=== PATIENT | male | born 1975 | race Caucasian/White ===

== ENCOUNTER 2018-04-12 20:05 | Observation (INO) ==
--- NOTE | 2018-04-12 20:10 | ED ---
HPI General Chief Complaint: Chest Pain Stated Complaint: Chest Pain Time Seen by Provider: 04/12/18 20:06 Source: patient Mode of arrival: EMS Limitations: no limitations History of Present Illness HPI narrative: Patient states that he is from [place], stated date while he was walking at a stroll pace he started to develop sharp chest pain. Chest pain described as sharp, nonradiating, 3 out of 10, worse with movement and touching the area. MD complaint: Reports chest pain STEMI Alert: No Duration: intermittent Onset: during exertion Pain location: Reports right chest Severity: mild Severity scale (1-10): 3 Quality: Reports sharp Pain radiation: Reports none Relieving factors: nothing Exacerbating factors: palpation and movement Associated symptoms: Denies nausea, vomiting, diaphoresis, dyspnea, sense of impending doom, syncope, palpitations, cough and leg swelling Treatments prior to arrival chest pain: Reports aspirin and nitroglycerin Related Data Home Medications Medication Instructions Recorded Confirmed albuterol sulfate [ProAir HFA] 2 puff INHALATION Q6H PRN 04/12/18 04/12/18 albuterol sulfate [Ventolin HFA] 2 puff INHALATION Q4-6H PRN 04/12/18 04/12/18 alprazolam [Xanax] 1 mg PO BID PRN 04/12/18 04/12/18 amlodipine [Norvasc] 10 mg PO DAILY 04/12/18 04/12/18 beclomethasone dipropionate [Qvar 2 puff INHALATION Q12H 04/12/18 04/12/18 RediHaler] benzonatate 100 mg PO TID PRN 04/12/18 04/12/18 hydrochlorothiazide 25 mg PO DAILY 04/12/18 04/12/18 ketorolac 10 mg PO Q4-6H PRN 04/12/18 04/12/18 lisinopril 40 mg PO DAILY 04/12/18 04/12/18 ondansetron HCl [Zofran] 4 mg PO Q6-8H PRN 04/12/18 04/12/18 Allergies Allergy/AdvReac Type Severity Reaction Status Date / Time No Known Allergies Allergy Verified 04/12/18 20:27 Review of Systems ROS: all other systems reviewed are negative PMFSH History History Provided By: Patient Medical History Medical History Asthma (Acute) Hypertension (Acute) Kidney stone (Acute) Surgical History Surgical History H/O rotator cuff surgery (Acute) Family History Family History Other Family history of acute myocardial infarction Social History Social History Substance History: No History of Abuse Smoking Status: Heavy tobacco smoker Tobacco Type: Cigarettes How Often Do You Have a Drink Containing Alcohol: Never Exam Narrative Exam Narrative: GENERAL: male in no apparent distress. SKIN: Warm and dry. HEAD: Atraumatic. Normocephalic. EYES: Pupils equal and round. No scleral icterus. No injection or drainage. ENT: No nasal bleeding or discharge. Mucous membranes pink and moist. NECK: Trachea midline. No JVD. CARDIOVASCULAR: Regular rate and rhythm. no rubs or gallops RESPIRATORY: No accessory muscle use. Clear to auscultation. Breath sounds equal bilaterally. GASTROINTESTINAL: Abdomen soft, non-tender, nondistended. No rebound or guarding MUSCULOSKELETAL: Extremities without clubbing, cyanosis, or edema. No obvious deformities. Noted reproducible tenderness on palpation of chest NEUROLOGICAL: Awake and alert. No obvious cranial nerve deficits. Motor grossly within normal limits. Five out of 5 muscle strength in the arms and legs. Normal speech. PSYCHIATRIC: Appropriate mood and affect; insight and judgment normal. Course Initial Documented Vital Signs Pulse Oximetry 98 04/12/18 20:28 Last Documented Vital Signs Temperature 97.9 F 04/12/18 20:31 Pulse Rate 86 04/12/18 20:32 Respiratory Rate 18 04/12/18 20:31 Blood Pressure 119/75 04/12/18 20:31 Pulse Oximetry 99 04/12/18 20:31 Medical Decision Making [facility] Narrative Medical decision making narrative: No leukocytosis no anemia normal platelet count no left shift D-dimer mildly elevated at 0.99 however the patient has renal insufficiency and cannot have CT chest rule out PE Normal liver and pancreatic enzymes Negative first set of cardiac enzymes Total CPK 817 BUN of 30 creatinine of 2.6 Negative alcohol Negative tox screen Chest x-ray read by radiologist as no acute cardiopulmonary disease Medical Screen Exam Complete: Yes Emergency Medical Condition: Yes Medical Records Medical records reviewed: Yes I reviewed the patient's medical records. Lab Data Result diagrams: 04/12/18 20:08 04/12/18 20:08 Lab Results 04/12/18 04/12/18 04/12/18 Range/Units 20:08 20:08 20:08 CBC w Diff Auto diff final WBC 9.1 (4.0-11.0) th/mm3 RBC 4.34 L (4.50-5.90) mil/mm3 Hgb 13.2 (13.0-17.0) gm/dL Hct 38.8 L (39.0-51.0) % MCV 89.4 (80.0-100.0) fL MCH 30.4 (27.0-34.0) pg MCHC 34.0 (32.0-36.0) % RDW 13.1 (11.6-17.2) % Plt Count 235 (150-450) th/mm3 MPV 8.7 (7.0-11.0) fL Neut % (Auto) 79.8 H (16.0-70.0) % Lymph % (Auto) 14.4 (9.0-44.0) % Door % (Auto) 4.5 (0.0-8.0) % Eos % (Auto) 0.8 (0.0-4.0) % Baso % (Auto) 0.5 (0.0-2.0) % Neut # (Auto) 7.3 (1.8-7.7) th/mm3 Lymph # (Auto) 1.3 (1.0-4.8) th/mm3 Door # (Auto) 0.4 (0.0-0.9) th/mm3 Eos # (Auto) 0.1 (0.0-0.4) th/mm3 Baso # (Auto) 0.0 (0.0-0.2) th/mm3 WBC Differential . Differential Comment . D-Dimer Quant (PE/DVT) 0.99 H (0.00-0.50) mg/L FEU Sodium 139 (136-145) meq/L Potassium 4.2 (3.5-5.1) meq/L Chloride 103 (98-107) meq/L Carbon Dioxide 25.5 (21.0-32.0) meq/L Anion Gap 11 (5-15) meq/L BUN 30 H (7-18) mg/dL Creatinine 2.60 H (0.60-1.30) mg/dL Estimated GFR 27 L (>89) mL/min Random Glucose 76 (74-106) mg/dL Calcium 8.4 L (8.5-10.1) mg/dL Total Bilirubin 0.6 (0.2-1.0) mg/dL AST 57 H (15-37) U/L ALT 71 (12-78) U/L Alkaline Phosphatase 65 (45-117) U/L Total Creatine Kinase 817 H (39-308) U/L Troponin I Less than 0.02 L (0.02-0.05) ng/mL B-Natriuretic Peptide (0-100) pg/mL Total Protein 7.1 (6.4-8.2) g/dL Albumin 3.5 (3.4-5.0) g/dL Lipase 265 (73-393) U/L Urine Opiates Screen (Neg) Ur Barbiturates Screen (Neg) Ur Amphetamines Screen (Neg) U Benzodiazepines Scrn (Neg) Urine Cocaine Screen (Neg) U Cannabinoids Screen (Neg) Serum Alcohol Less than 3 (0-5) mg/dL 04/12/18 04/12/18 Range/Units 20:08 20:23 CBC w Diff WBC (4.0-11.0) th/mm3 RBC (4.50-5.90) mil/mm3 Hgb (13.0-17.0) gm/dL Hct (39.0-51.0) % MCV (80.0-100.0) fL MCH (27.0-34.0) pg MCHC (32.0-36.0) % RDW (11.6-17.2) % Plt Count (150-450) th/mm3 MPV (7.0-11.0) fL Neut % (Auto) (16.0-70.0) % Lymph % (Auto) (9.0-44.0) % Door % (Auto) (0.0-8.0) % Eos % (Auto) (0.0-4.0) % Baso % (Auto) (0.0-2.0) % Neut # (Auto) (1.8-7.7) th/mm3 Lymph # (Auto) (1.0-4.8) th/mm3 Door # (Auto) (0.0-0.9) th/mm3 Eos # (Auto) (0.0-0.4) th/mm3 Baso # (Auto) (0.0-0.2) th/mm3 WBC Differential Differential Comment D-Dimer Quant (PE/DVT) (0.00-0.50) mg/L FEU Sodium (136-145) meq/L Potassium (3.5-5.1) meq/L Chloride (98-107) meq/L Carbon Dioxide (21.0-32.0) meq/L Anion Gap (5-15) meq/L BUN (7-18) mg/dL Creatinine (0.60-1.30) mg/dL Estimated GFR (>89) mL/min Random Glucose (74-106) mg/dL Calcium (8.5-10.1) mg/dL Total Bilirubin (0.2-1.0) mg/dL AST (15-37) U/L ALT (12-78) U/L Alkaline Phosphatase (45-117) U/L Total Creatine Kinase (39-308) U/L Troponin I (0.02-0.05) ng/mL B-Natriuretic Peptide 7 (0-100) pg/mL Total Protein (6.4-8.2) g/dL Albumin (3.4-5.0) g/dL Lipase (73-393) U/L Urine Opiates Screen Neg (Neg) Ur Barbiturates Screen Neg (Neg) Ur Amphetamines Screen Neg (Neg) U Benzodiazepines Scrn Neg (Neg) Urine Cocaine Screen Neg (Neg) U Cannabinoids Screen Neg (Neg) Serum Alcohol (0-5) mg/dL Imaging Data Radiologist's impression: Chest X-Ray 04/12/18 20:06 CONCLUSION: No acute cardiopulmonary disease. ECG Data EKG Prior to Arrival: No Attestation: I personally reviewed and interpreted this ECG as follows: Prior ECG tracings: not available for review Interpretation: Normal sinus rhythm, 69 bpm, normal intervals, slight LVH pattern, no evidence of any acute ST elevation MN pattern Discharge Plan Discharge Disposition Patient Disposition: 01 Discharge Home Discharge Condition Condition: Stable Discharge Details Diagnosis: Chest wall pain Physicians Team ED Provider: Saurav Sevilla Primary Care Provider: UNKNOWN, Rxs /Orders / Referrals /Forms Prescriptions: No Action alprazolam [Xanax] 1 mg Tablet 1 mg PO BID PRN (Reason: Anxiety) RF: 0 ondansetron HCl [Zofran] 4 mg Tablet 4 mg PO Q6-8H PRN (Reason: Nausea) RF: 0 ketorolac 10 mg Tablet 10 mg PO Q4-6H PRN (Reason: Pain) RF: 0 amlodipine [Norvasc] 10 mg Tablet 10 mg PO DAILY RF: 0 benzonatate 100 mg Capsule 100 mg PO TID PRN (Reason: Cough) RF: 0 hydrochlorothiazide 25 mg Tablet 25 mg PO DAILY RF: 0 albuterol sulfate [Ventolin HFA] 90 mcg/actuation Hfa Aerosol Inhaler 2 puff INHALATION Q4-6H PRN (Reason: Shortness Of Breath) RF: 0 albuterol sulfate [ProAir HFA] 90 mcg/actuation Hfa Aerosol Inhaler 2 puff INHALATION Q6H PRN (Reason: Shortness Of Breath) RF: 0 lisinopril 40 mg Tablet 40 mg PO DAILY RF: 0 beclomethasone dipropionate [Qvar RediHaler] 80 mcg/actuation Hfa Aerosol Breath Activated 2 puff INHALATION Q12H RF: 0 Discharge Instructions Patient Printed Instructions: Chest Wall Pain (ED) Status ED Status: With Doctor
[2018-04-12 20:31] LABS: Baso % (Auto) 0.5 % (0.0-2.0); Eos # (Auto) 0.1 th/mm3 (0.0-0.4); Eos % (Auto) 0.8 % (0.0-4.0); Hematocrit 38.8 % (39.0-51.0); Hemoglobin 13.2 gm/dL (13.0-17.0); Lymph # (Auto) 1.3 th/mm3 (1.0-4.8); Lymph % (Auto) 14.4 % (9.0-44.0); Mean Corpuscular Hemoglobin 30.4 pg (27.0-34.0); Mean Corpuscular Volume 89.4 fL (80.0-100.0); Mean Platelet Volume 8.7 fL (7.0-11.0); Mono # (Auto) 0.4 th/mm3 (0.0-0.9); Mono % (Auto) 4.5 % (0.0-8.0); Neut # (Auto) 7.3 th/mm3 (1.8-7.7); Neut % (Auto) 79.8 % (16.0-70.0); Platelet Count 235 th/mm3 (150-450); Red Blood Count 4.34 mil/mm3 (4.50-5.90); Red Cell Distribution Width 13.1 % (11.6-17.2); White Blood Count 9.1 th/mm3 (4.0-11.0)
[2018-04-12 20:36] LABS: Cannabinoid Screen,Urine Neg (Neg)
[2018-04-12 20:37] LABS: Cocaine Screen,Urine Neg (Neg)
--- NOTE | 2018-04-12 20:37 | XR ---
EXAM DATE: 04/12/2018 8:32 PM EST AGE/SEX: 42 years / Male INDICATIONS: Chest pain. CLINICAL DATA: This is the patient's initial encounter. Patient reports that signs and symptoms have been present for 2 days and indicates a pain score of 7/10. MEDICAL/SURGICAL HISTORY: Asthma. Hypertension. . Left shoulder . COMPARISON: No prior exams available for comparison. FINDINGS: The lungs are clear without infiltrate, nodule, or mass. There is no appreciable pleural effusion fo r technique. Heart and mediastinum are unremarkable. CONCLUSION: No acute cardiopulmonary disease. Electronically signed by: Hui Whalen MD Board Certified Radiologist 04/12/2018 8:35 PM EST
[2018-04-12 20:38] LABS: Chloride 103 meq/L (98-107); Potassium 4.2 meq/L (3.5-5.1); Sodium 139 meq/L (136-145)
[2018-04-12 20:42] LABS: Albumin 3.5 g/dL (3.4-5.0); Anion Gap 11 meq/L (5-15); Blood Urea Nitrogen 30 mg/dL (7-18); Calcium 8.4 mg/dL (8.5-10.1); Carbon Dioxide 25.5 meq/L (21.0-32.0); Glucose,Random 76 mg/dL (74-106); Lipase 265 U/L (73-393)
[2018-04-12 20:45] LABS: Alanine Aminotransferase 71 U/L (12-78); Aspartate Aminotransferase 57 U/L (15-37); Glomerular Filtration Rate 27 mL/min (>89)
[2018-04-12 20:46] LABS: Amphetamine Screen,Urine Neg (Neg); Barbiturate Screen,Urine Neg (Neg)
[2018-04-12 20:47] LABS: Total Protein 7.1 g/dL (6.4-8.2)
[2018-04-12 20:48] LABS: Alkaline Phosphatase 65 U/L (45-117); Creatine Kinase 817 U/L (39-308)
[2018-04-12 21:00] LABS: Opiate Screen,Urine Neg (Neg)
[2018-04-12] MEDS ORDERED: Sod Chloride 0.9% Inj 1,000 ML IV.SIG ONE (21:04)
[2018-04-12 21:13] LABS: CKMB Percent 0.9 % (0.0-4.0); Creatine Kinase MB 7.4 ng/mL (0.5-3.6)
[2018-04-12] MEDS ORDERED: Acetaminophen 325 MG Tablet PO PRN (21:27)
[2018-04-12] MEDS ORDERED: Bisacodyl 10 MG Supp RECTAL PRN (21:27)
[2018-04-12] MEDS: Sod Chloride 0.9% Inj 1,000 ML IV.CONT SCH (22:27)
[2018-04-12] MEDS: Morphine Inj 4 MG/ML Vial IV.PUSH PRN (22:34)
[2018-04-13 00:07] LABS: Bilirubin,Urine Negative (Negative); Clarity,Urine Clear (Clear); Color,Urine Yellow (Yellw/Straw); Glucose,Urine (UA) Negative (Negative); Leukocyte Esterase,Urine Trace (Negative); Nitrite,Urine Negative (Negative); PH,Urine 5.5 (5.0-8.5); Urobilinogen,Urine 0.2 mg/dL (Less than 2)
[2018-04-13 00:30] LABS: RBC,Urine 0-3 /hpf (0-3); Squamous Epithelial Cell,Urine 0-5 /hpf (0-5)
[2018-04-13 07:18] LABS: Baso # (Auto) 0.1 th/mm3 (0.0-0.2); Baso % (Auto) 1.4 % (0.0-2.0); Eos # (Auto) 0.2 th/mm3 (0.0-0.4); Eos % (Auto) 2.5 % (0.0-4.0); Hematocrit 35.5 % (39.0-51.0); Hemoglobin 11.9 gm/dL (13.0-17.0); Lymph # (Auto) 2.3 th/mm3 (1.0-4.8); Lymph % (Auto) 33.1 % (9.0-44.0); Mean Corpuscular HGB Conc 33.6 % (32.0-36.0); Mean Corpuscular Hemoglobin 30.4 pg (27.0-34.0); Mean Corpuscular Volume 90.5 fL (80.0-100.0); Mean Platelet Volume 9.2 fL (7.0-11.0); Mono # (Auto) 0.5 th/mm3 (0.0-0.9); Mono % (Auto) 6.7 % (0.0-8.0); Neut # (Auto) 3.8 th/mm3 (1.8-7.7); Neut % (Auto) 56.3 % (16.0-70.0); Platelet Count 202 th/mm3 (150-450); Red Blood Count 3.92 mil/mm3 (4.50-5.90); Red Cell Distribution Width 13.4 % (11.6-17.2); White Blood Count 6.9 th/mm3 (4.0-11.0)
[2018-04-13 07:28] LABS: Chloride 108 meq/L (98-107); Potassium 4.2 meq/L (3.5-5.1); Sodium 141 meq/L (136-145)
[2018-04-13 07:33] LABS: Calcium 7.9 mg/dL (8.5-10.1)
[2018-04-13] MEDS: Senna/Docusate Sodium 8.6/50 MG Tablet PO SCH ×2 (08:01→21:17)
[2018-04-13] MEDS: Sod Chloride 0.9% Inj 1,000 ML IV.CONT SCH ×2 (08:02→17:39)
[2018-04-13 08:38] LABS: Alanine Aminotransferase 53 U/L (12-78); Albumin 2.8 g/dL (3.4-5.0); Alkaline Phosphatase 52 U/L (45-117); Anion Gap 8 meq/L (5-15); Aspartate Aminotransferase 40 U/L (15-37); Blood Urea Nitrogen 32 mg/dL (7-18); Carbon Dioxide 25.4 meq/L (21.0-32.0); Creatine Kinase 518 U/L (39-308); Glomerular Filtration Rate 34 mL/min (>89); Glucose,Random 80 mg/dL (74-106); Total Protein 5.7 g/dL (6.4-8.2)
[2018-04-13 09:58] LABS: CKMB Percent 0.8 % (0.0-4.0); Creatine Kinase MB 4.3 ng/mL (0.5-3.6)
--- NOTE | 2018-04-13 10:12 | P.HP ---
History of Present Illness Primary Care Physician: No Primary Care Physician Chief Complaint: Chest pain, generalized muscle ache History of Present Illness: This is a 42-year-old male patient with a known medical history of asthma and hypertension who presented to the ED with complaints of chest pain. Patient states he was on a walk yesterday when he developed a midsternal chest pain, he states that the pain is sharp in nature, radiated up his neck, states it was a 7 out of 10 at its worst on pain scale, lasted a couple minutes and then went away. Alleviating factors. He denies ever having this type of pain before. He denies any trauma or pulling a muscle. He does admit to low appetite lately as well as being dehydrated and overall feeling more out. He denies any recent illness including fever, chills, headache, vomiting, nausea, vomiting, diarrhea or dysuria. He is from [place], recently moved down here with a friend, states that he has been under a lot of stress and has been kicked out, and is essentially homeless at this time. He does not follow with a doctor. He does have a history of asthma which is controlled with his inhalers. His blood pressure is controlled with his medications. He does smoke tobacco daily. Denies any alcohol or drugs. Denies ever having a cardiac stress test in the past. Denies any history of kidney disease. On exam today patient is lying in bed with improvement in his chest pain. He states that overall he feels fatigued as well as generally weak with aches. He was found to have an elevated CPK and acute kidney injury. - Diagnosis (1) Acute renal failure due to rhabdomyolysis (2) Chest pain, rule out acute myocardial infarction Review of Systems All other systems reviewed negative except as [facility] - History History Provided By: Patient - Medical History Medical History: Medical History (Last Reviewed 04/13/18 @ 10:00 by Anya Woodson) Asthma Hypertension Kidney stone - Surgical History Surgical History: Surgical History (Last Reviewed 04/13/18 @ 10:00 by Anya Woodson) H/O rotator cuff surgery - Family History Family History: Family History (Last Reviewed 04/13/18 @ 10:00 by Anya Woodson) Other Family history of acute myocardial infarction - Social History I have reviewed the patient's Social History: Yes - Tobacco History Second Hand Smoke Exposure: Yes Tobacco Use In Past 30 Days: No Smoking Status: Current every day smoker Tobacco Type: Cigarettes - Alcohol History How Often Do You Have a Drink Containing Alcohol: Never - Substance Use History Substance History: No History of Abuse - Immunization History Tetanus Immunization: Unsure Medications and Allergies Active Medications: Active Medications Acetaminophen (Tylenol) 650 mg PO Q4H PRN PRN Reason: Temp > 100.4 Al Hydroxide/Mg Hydroxide (Milk Of Magnesia Liq) 30 ml PO Q12H PRN PRN Reason: Mild Constipation Aspirin (Ecotrin) 81 mg PO DAILY [facility] Last Admin: 04/13/18 08:01 Dose: 81 mg Bisacodyl (Dulcolax Supp) 10 mg RECTAL DAILY PRN PRN Reason: SEVERE CONSITIPATION Sodium Chloride (Ns Inj) 1,000 mls @ 100 mls/hr IV.CONT .Q10H [facility] Last Admin: 04/13/18 08:02 Dose: 100 mls/hr Lactulose (Lactulose Liq) 30 ml PO DAILY PRN PRN Reason: SEVERE CONSITIPATION Morphine Sulfate (Morphine Inj) 2 mg IV.PUSH Q4H PRN PRN Reason: PAIN 6-10 Last Admin: 04/12/18 22:34 Dose: 2 mg Nitroglycerin (Nitro-Bid 2% Oint) 0.5 inch TOPICAL Q6HR PRN PRN Reason: CHEST PAIN Last Admin: 04/13/18 08:05 Dose: 0.5 inch Ondansetron HCl (Zofran Inj) 4 mg IV.PUSH Q6H PRN PRN Reason: NAUSEA OR VOMITING Last Admin: 04/12/18 22:34 Dose: 4 mg Pravastatin Sodium (Pravachol) 40 mg PO DAILY [facility] Last Admin: 04/13/18 08:01 Dose: 40 mg Senna/Docusate Sodium (Clary-Colace) 1 tab PO BID [facility] Last Admin: 04/13/18 08:01 Dose: 1 tab Sennosides (Senokot) 17.2 mg PO Q12H PRN PRN Reason: Moderate Constipation Sodium Chloride (Ns Flush) 2 ml IV.FLUSH BID [facility] Last Admin: 04/13/18 08:02 Dose: Not Given Sodium Chloride (Ns Flush) 2 ml IV.FLUSH PRN PRN PRN Reason: FLUSH AFTER USING IV ACCESS Allergies Allergy/AdvReac Type Severity Reaction Status Date / Time No Known Allergies Allergy Verified 04/12/18 20:27 Home Medications Medication Instructions Recorded Confirmed Type albuterol sulfate [ProAir HFA] 2 puff INHALATION Q6H PRN 04/12/18 04/12/18 History albuterol sulfate [Ventolin HFA] 2 puff INHALATION Q4-6H PRN 04/12/18 04/12/18 History alprazolam [Xanax] 1 mg PO BID PRN 04/12/18 04/12/18 History amlodipine [Norvasc] 10 mg PO DAILY 04/12/18 04/12/18 History beclomethasone dipropionate [Qvar 2 puff INHALATION Q12H 04/12/18 04/12/18 History RediHaler] benzonatate 100 mg PO TID PRN 04/12/18 04/12/18 History hydrochlorothiazide 25 mg PO DAILY 04/12/18 04/12/18 History ketorolac 10 mg PO Q4-6H PRN 04/12/18 04/12/18 History lisinopril 40 mg PO DAILY 04/12/18 04/12/18 History ondansetron HCl [Zofran] 4 mg PO Q6-8H PRN 04/12/18 04/12/18 History Exam Vital signs: Vital Signs 04/12/18 20:28 04/12/18 20:29 04/12/18 20:31 Temperature 97.9 F 97.9 F Pulse Rate 86 86 Respiratory Rate 18 18 Blood Pressure 119/75 119/75 Pulse Oximetry 98 99 99 04/12/18 20:32 04/12/18 21:27 04/12/18 21:30 Temperature Pulse Rate 86 82 86 Respiratory Rate 18 Blood Pressure 129/76 Pulse Oximetry 100 04/13/18 00:00 04/13/18 04:00 04/13/18 06:23 Temperature 97.5 F L 96.8 F L Pulse Rate 81 83 Respiratory Rate 20 20 Blood Pressure 96/55 L 109/59 L 111/73 Pulse Oximetry 97 98 04/13/18 08:00 04/13/18 09:41 Temperature Pulse Rate Respiratory Rate Blood Pressure Pulse Oximetry 98 99 Intake & Output 04/12/18 04/13/18 04/13/18 18:59 06:59 18:59 Intake Total 1000 / 1000 1000 / 1000 Output Total 1100 / 1100 Balance -100 / -100 1000 / 1000 Weight 68.5 kg Intake: IV 1000 / 1000 1000 / 1000 NS Inj 1,000 ML @ 100 mls/hr IV 1000 / 1000 .CONT .Q10H [facility] Rx#:[id number] NS Inj 1,000 ML @ Wide Open IV. 1000 / 1000 SIG BOLUS ONE Rx#:[id number] Oral 0 / 0 Output: Urine 1100 / 1100 Other: Date of Last Bowel Movement 04/11/18 Weight On Admission 68.5 kg Narrative: GENERAL: Well-developed, well-nourished patient in [facility]. SKIN: Warm and dry. No rash. HEAD: Normocephalic. Atraumatic. EYES: Pupils equal and round. No scleral icterus. No injection or drainage. ENT: No nasal bleeding or discharge. Mucous membranes pink and moist. NECK: Supple. Trachea midline. CARDIOVASCULAR: Regular rate and rhythm. S1, S2 noted. No murmur appreciated. Mild cp to palpation of midsternal chest. RESPIRATORY: No accessory muscle use. Clear to auscultation. Breath sounds equal bilaterally. GASTROINTESTINAL: Abdomen soft, non-tender, nondistended. Normoactive bowel sounds x4. MUSCULOSKELETAL: No obvious deformities. Extremities without clubbing, cyanosis , or edema. NEUROLOGICAL: Awake and alert. No obvious cranial nerve deficits. Motor grossly within normal limits. 5/5 muscle strength in bilateral upper and lower extremities. Normal speech. PSYCHIATRIC: Appropriate mood and affect; insight and judgment normal. Results - Labs CBC & Chem 7: 04/13/18 06:40 04/13/18 06:40 Labs: Laboratory Results - last 24 hr 04/12/18 04/12/18 04/12/18 20:08 20:08 20:08 CBC w Diff Auto diff final WBC 9.1 RBC 4.34 L Hgb 13.2 Hct 38.8 L MCV 89.4 MCH 30.4 MCHC 34.0 RDW 13.1 Plt Count 235 MPV 8.7 Neut % (Auto) 79.8 H Lymph % (Auto) 14.4 [place] % (Auto) 4.5 Eos % (Auto) 0.8 Baso % (Auto) 0.5 Neut # (Auto) 7.3 Lymph # (Auto) 1.3 [place] # (Auto) 0.4 Eos # (Auto) 0.1 Baso # (Auto) 0.0 WBC Differential . Differential Comment . D-Dimer Quant (PE/DVT) 0.99 H Sodium 139 Potassium 4.2 Chloride 103 Carbon Dioxide 25.5 Anion Gap 11 BUN 30 H Creatinine 2.60 H Estimated GFR 27 L Random Glucose 76 Calcium 8.4 L Total Bilirubin 0.6 AST 57 H ALT 71 Alkaline Phosphatase 65 Total Creatine Kinase 817 H CK-MB (CK-2) 7.4 H CK-MB (CK-2) % 0.9 Troponin I Less than 0.02 L B-Natriuretic Peptide Total Protein 7.1 Albumin 3.5 Lipase 265 Urine Color Urine Clarity Urine pH Ur Specific [place] Urine Protein Urine Glucose (UA) Urine Ketones Urine Occult Blood Urine Nitrate Urine Bilirubin Urine Urobilinogen Ur Leukocyte Esterase Urine RBC Urine WBC Ur Squamous Epith Cells Micro UA Comment Ur Microscopic Review Urine Culture Comments Urine Opiates Screen Ur Barbiturates Screen Ur Amphetamines Screen U Benzodiazepines Scrn Urine Cocaine Screen U Cannabinoids Screen Serum Alcohol Less than 3 04/12/18 04/12/18 04/13/18 20:08 20:23 00:01 CBC w Diff WBC RBC Hgb Hct MCV MCH MCHC RDW Plt Count MPV Neut % (Auto) Lymph % (Auto) [place] % (Auto) Eos % (Auto) Baso % (Auto) Neut # (Auto) Lymph # (Auto) [place] # (Auto) Eos # (Auto) Baso # (Auto) WBC Differential Differential Comment D-Dimer Quant (PE/DVT) Sodium Potassium Chloride Carbon Dioxide Anion Gap BUN Creatinine Estimated GFR Random Glucose Calcium Total Bilirubin AST ALT Alkaline Phosphatase Total Creatine Kinase CK-MB (CK-2) CK-MB (CK-2) % Troponin I Less than 0.02 L B-Natriuretic Peptide 7 Total Protein Albumin Lipase Urine Color Urine Clarity Urine pH Ur Specific [place] Urine Protein Urine Glucose (UA) Urine Ketones Urine Occult Blood Urine Nitrate Urine Bilirubin Urine Urobilinogen Ur Leukocyte Esterase Urine RBC Urine WBC Ur Squamous Epith Cells Micro UA Comment Ur Microscopic Review Urine Culture Comments Urine Opiates Screen Neg Ur Barbiturates Screen Neg Ur Amphetamines Screen Neg U Benzodiazepines Scrn Neg Urine Cocaine Screen Neg U Cannabinoids Screen Neg Serum Alcohol 04/13/18 04/13/18 04/13/18 00:01 06:40 06:40 CBC w Diff Auto diff final WBC 6.9 RBC 3.92 L Hgb 11.9 L Hct 35.5 L MCV 90.5 MCH 30.4 MCHC 33.6 RDW 13.4 Plt Count 202 MPV 9.2 Neut % (Auto) 56.3 Lymph % (Auto) 33.1 [place] % (Auto) 6.7 Eos % (Auto) 2.5 Baso % (Auto) 1.4 Neut # (Auto) 3.8 Lymph # (Auto) 2.3 [place] # (Auto) 0.5 Eos # (Auto) 0.2 Baso # (Auto) 0.1 WBC Differential . Differential Comment . D-Dimer Quant (PE/DVT) Sodium 141 Potassium 4.2 Chloride 108 H Carbon Dioxide 25.4 Anion Gap 8 BUN 32 H Creatinine 2.10 H Estimated GFR 34 L Random Glucose 80 Calcium 7.9 L Total Bilirubin 0.5 AST 40 H ALT 53 Alkaline Phosphatase 52 Total Creatine Kinase 518 H CK-MB (CK-2) CK-MB (CK-2) % Troponin I B-Natriuretic Peptide Total Protein 5.7 L D Albumin 2.8 L D Lipase Urine Color Yellow Urine Clarity Clear Urine pH 5.5 Ur Specific [place] 1.020 Urine Protein Negative Urine Glucose (UA) Negative Urine Ketones 15 H Urine Occult Blood Trace Urine Nitrate Negative Urine Bilirubin Negative Urine Urobilinogen 0.2 Ur Leukocyte Esterase Trace H Urine RBC 0-3 Urine WBC 6-8 H Ur Squamous Epith Cells 0-5 Micro UA Comment Culture not ind Ur Microscopic Review Microscopic reviewed Urine Culture Comments Culture not ind Urine Opiates Screen Ur Barbiturates Screen Ur Amphetamines Screen U Benzodiazepines Scrn Urine Cocaine Screen U Cannabinoids Screen Serum Alcohol 04/13/18 06:40 CBC w Diff WBC RBC Hgb Hct MCV MCH MCHC RDW Plt Count MPV Neut % (Auto) Lymph % (Auto) [place] % (Auto) Eos % (Auto) Baso % (Auto) Neut # (Auto) Lymph # (Auto) [place] # (Auto) Eos # (Auto) Baso # (Auto) WBC Differential Differential Comment D-Dimer Quant (PE/DVT) Sodium Potassium Chloride Carbon Dioxide Anion Gap BUN Creatinine Estimated GFR Random Glucose Calcium Total Bilirubin AST ALT Alkaline Phosphatase Total Creatine Kinase CK-MB (CK-2) CK-MB (CK-2) % Troponin I Less than 0.02 L B-Natriuretic Peptide Total Protein Albumin Lipase Urine Color Urine Clarity Urine pH Ur Specific [place] Urine Protein Urine Glucose (UA) Urine Ketones Urine Occult Blood Urine Nitrate Urine Bilirubin Urine Urobilinogen Ur Leukocyte Esterase Urine RBC Urine WBC Ur Squamous Epith Cells Micro UA Comment Ur Microscopic Review Urine Culture Comments Urine Opiates Screen Ur Barbiturates Screen Ur Amphetamines Screen U Benzodiazepines Scrn Urine Cocaine Screen U Cannabinoids Screen Serum Alcohol - Imaging Impressions Chest X-Ray 04/12/18 20:06 CONCLUSION: No acute cardiopulmonary disease. Caprini VTE Risk Assessment Caprini VTE Risk Assessment: No/Low Risk (score <= 1) Caprini Risk Assessment Model: Point Value = 1 Point Value = 2 Point Value = 3 Point Value = 5 Age 41-60 Minor surgery BMI > 25 kg/m2 Swollen legs Varicose veins or History of unexplained or recurrent spontaneous Oral contraceptives or hormone replacement Sepsis (< 1 month) Serious lung disease, including pneumonia (< 1 month) Abnormal pulmonary function Acute myocardial infarction Congestive heart failure (< 1 month) History of inflammatory bowel disease Medical patient at bed rest Age 61-74 Arthroscopic surgery Major open surgery (> 45 min) Laparoscopic surgery (> 45 min) Malignancy Confined to bed (> 72 hours) Immobilizing plaster cast Central venous access Age >= 75 History of VTE Family history of VTE Factor V Leiden Prothrombin [id number] Lupus anticoagulant Anticardiolipin antibodies Elevated serum homocysteine Heparin-induced thrombocytopenia Other congenital or acquired thrombophilia Stroke (< 1 month) Elective arthroplasty Hip, pelvis, or leg fracture Acute spinal cord injury (< 1 month) Prophylaxis Regimen: Total Risk Factor Score Risk Level Prophylaxis Regimen 0-1 Low Early ambulation 2 Moderate Order ONE of the following: *Sequential Compression Device (SCD) *Heparin 5000 units SQ BID 3-4 Higher Order ONE of the following medications: *Heparin 5000 units SQ TID *Enoxaparin/Lovenox 40 mg SQ daily (WT < 150 kg, CrCl > 30 mL/min) *Enoxaparin/Lovenox 30 mg SQ daily (WT < 150 kg, CrCl > 10-29 mL/min) *Enoxaparin/Lovenox 30 mg SQ BID (WT < 150 kg, CrCl > 30 mL/min) AND/OR *Sequential Compression Device (SCD) 5 or more Highest Order ONE of the following medications: *Heparin 5000 units SQ TID (Preferred with Epidurals) *Enoxaparin/Lovenox 40 mg SQ daily (WT < 150 kg, CrCl > 30 mL/min) *Enoxaparin/Lovenox 30 mg SQ daily (WT < 150 kg, CrCl > 10-29 mL/min) *Enoxaparin/Lovenox 30 mg SQ BID (WT < 150 kg, CrCl > 30 mL/min) AND *Sequential Compression Device (SCD) Assessment and Plan - Assessment (1) Acute renal failure due to rhabdomyolysis Code(s): N17.9 - Acute kidney failure, unspecified; M62.82 - Rhabdomyolysis Status: Acute (2) Chest pain, rule out acute myocardial infarction Code(s): R07.9 - Chest pain, unspecified Status: Acute - Plan This is a 42-year-old male patient who presented to the ED with: Chest pain, atypical -Patient has been admitted for observation. -Serial EKGs and serial troponins have been ordered for ruling out ACS purposes. Troponin trend flat. -EKG reviewed, normal sinus rhythm with controlled heart rate, no evidence of ST elevation. -Chest x-ray reviewed, no acute cardiopulmonary disease noted. -D-dimer was mildly elevated but she did have renal insufficiency CTA will be on hold for now. -Patient is currently without shortness of breath and lying in bed comfortably. -CBC reviewed, essentially unremarkable. -BMP showing acute kidney injury. -ACS has been ruled out with serial EKGs and serial troponins. Chest pain is mildly reproducible in the midsternal chest, this is suspected secondary to a musculoskeletal issue. Unable to give NSAIDs due to acute kidney injury. Tylenol as needed. -Patient is comfortable at this time. Supportive care. Acute rhabdomyolysis Acute kidney injury suspect secondary to above -CPK level in the 100s upon presentation, trending down today. Creatinine 2.6/ BUN 30/GFR 27. Patient denies any history of kidney disease in the past. -Continue IV fluids. Ensure hydration. -UA is negative. Will check ultrasound. -Tox screen and alcohol level negative. BNP 7. Will continue to monitor labs in a.m. Hypertension -Patient takes Norvasc and lisinopril. We will continue Doribax. Hold AURELIA inhibitor for now. Monitor blood pressure trends. History of asthma -This is stable. Continue home inhalers. DVT prophylaxis: SCDs. Ambulation.
[2018-04-13] MEDS: Morphine Inj 4 MG/ML Vial IV.PUSH PRN (10:21)
[2018-04-13 11:28] LABS: Cholesterol 108 mg/dL (120-200); Triglycerides 95 mg/dL (42-150)
[2018-04-13 11:31] LABS: Chol/HDL Ratio 3.06 Ratio; HDL Cholesterol 35.2 mg/dL (40.0-60.0); LDL Cholesterol,Calculated 54 mg/dL (0-99)
[2018-04-13] MEDS: Beclomethasone Dipropionate 80 MCG/ACT 10.6 GM Inhaler INH SCH ×2 (11:32→22:04)
--- NOTE | 2018-04-13 12:05 | ECG ---
Date Performed: 04/12/2018 Time Performed: 20:04:51 PTAGE: 42 years EKG: Sinus rhythm WITH SINUS ARRHYTHMIA NORMAL ECG NO PREVIOUS TRACING DOCTOR: Chandana Oneil Interpretating Date/Time 04/13/2018 12:05:02
--- NOTE | 2018-04-13 12:14 | US ---
EXAM DATE: 04/13/2018 12:04 PM EST AGE/SEX: 42 years / Male INDICATIONS: Increased BUN and creatinine. CLINICAL DATA: This is the patient's initial encounter. Patient reports that signs and symptoms have been present for 1 day and indicates a pain score of 0/10. MEDICAL/SURGICAL HISTORY: . Asthma. Hypertension. Kidney stone. . Rotator cuff surgery. COMPARISON: No prior exams available for comparison. MEASUREMENTS: Right Kidney:__10.4 x 4.4 x 4.6 cm Left Kidney:__11.3 x 5.3 x 4.4 cm FINDINGS: Right Kidney: Normal echogenicity and cortical thickness. No mass or hydronephrosis. Left Kidney: Normal echogenicity and cortical thickness. No mass or hydronephrosis. Bladder: Within normal limits given the degree of distension. Other: None. CONCLUSION: 1. Normal exam Electronically signed by: Kristine Ramirez MD Board Certified Radiologist 04/13/2018 12:12 PM E
[2018-04-13 13:14] LABS: Hemoglobin A1c 5.4 % (4.3-6.0)
[2018-04-13 19:13] LABS: Sodium,Urine Random 86 meq/L
[2018-04-13 19:29] LABS: Creatinine,Urine Random 68 mg/dL (27-300)
[2018-04-14] MEDS: Morphine Inj 4 MG/ML Vial IV.PUSH PRN (00:40)
[2018-04-14] MEDS: Sod Chloride 0.9% Inj 1,000 ML IV.CONT SCH (03:49)
[2018-04-14 05:54] LABS: Baso % (Auto) 0.7 % (0.0-2.0); Eos # (Auto) 0.2 th/mm3 (0.0-0.4); Eos % (Auto) 2.7 % (0.0-4.0); Hematocrit 36.3 % (39.0-51.0); Hemoglobin 11.9 gm/dL (13.0-17.0); Lymph # (Auto) 2.5 th/mm3 (1.0-4.8); Lymph % (Auto) 38.1 % (9.0-44.0); Mean Corpuscular HGB Conc 32.7 % (32.0-36.0); Mean Corpuscular Hemoglobin 29.3 pg (27.0-34.0); Mean Corpuscular Volume 89.7 fL (80.0-100.0); Mono # (Auto) 0.5 th/mm3 (0.0-0.9); Mono % (Auto) 7.6 % (0.0-8.0); Neut # (Auto) 3.4 th/mm3 (1.8-7.7); Neut % (Auto) 50.9 % (16.0-70.0); Platelet Count 218 th/mm3 (150-450); Red Blood Count 4.05 mil/mm3 (4.50-5.90); Red Cell Distribution Width 12.8 % (11.6-17.2); White Blood Count 6.6 th/mm3 (4.0-11.0)
[2018-04-14 06:08] LABS: Potassium 4.4 meq/L (3.5-5.1)
[2018-04-14 06:16] LABS: Calcium 7.9 mg/dL (8.5-10.1); Carbon Dioxide 29.3 meq/L (21.0-32.0)
[2018-04-14] MEDS: Senna/Docusate Sodium 8.6/50 MG Tablet PO SCH (08:42)
[2018-04-14 08:43] VITALS: BP 128/81; PULSE 66; RESP 19; TEMP 97; O2SAT 98
[2018-04-14] MEDS ORDERED: amLODIPine 10 MG Tablet PO SCH (09:00)
--- NOTE | 2018-04-14 09:04 | P.PNIM ---
Subjective Interval history: Follow-up acute rhabdomyolysis his chest pain. Patient seen and examined, lab work improved with IV fluids. Is eating well. States he has intermittent chest pain. Requested stress test. Ordered for this morning. Afebrile. Vital signs stable. Physical Exam Vital signs: Vital Signs 04/13/18 09:41 04/13/18 10:23 04/13/18 11:35 Temperature Pulse Rate Respiratory Rate 18 18 Blood Pressure Pulse Oximetry 99 04/13/18 12:00 04/13/18 12:05 04/13/18 15:53 Temperature Pulse Rate 62 Respiratory Rate 21 18 18 Blood Pressure 102/62 Pulse Oximetry 97 04/13/18 16:00 04/13/18 16:23 04/13/18 20:00 Temperature 98.1 F Pulse Rate 94 H 71 Respiratory Rate 18 18 20 Blood Pressure 111/66 106/59 L Pulse Oximetry 98 97 04/13/18 22:08 04/14/18 00:00 04/14/18 04:00 Temperature 97.8 F 97.7 F Pulse Rate 85 64 Respiratory Rate 20 20 Blood Pressure 119/64 110/62 Pulse Oximetry 97 96 97 04/14/18 07:50 04/14/18 08:00 Temperature 97.0 F L Pulse Rate 66 Respiratory Rate 19 Blood Pressure 128/81 Pulse Oximetry 95 98 Intake & Output 04/13/18 04/14/18 04/14/18 18:59 06:59 18:59 Intake Total 2500 / 2500 1480 / 1480 240 / 240 Output Total 400 / 400 800 / 800 1000 / 1000 Balance 2100 / 2100 680 / 680 -760 / -760 Weight 73.3 kg Intake: IV 1999 1000 / 1000 NS Inj 1,000 ML @ 100 mls/hr IV 1999 / 1999 1000 / 1000 .CONT .Q10H [facility] Rx#:[id number] Oral 500 / 500 480 / 480 240 / 240 Output: Urine 400 / 400 800 / 800 1000 / 1000 Other: # Voids 2 Date of Last Bowel Movement 04/11/18 04/11/18 Narrative: GENERAL: Well-developed, well-nourished patient in [facility]. SKIN: Warm and dry. No rash. HEAD: Normocephalic. Atraumatic. EYES: Pupils equal and round. No scleral icterus. No injection or drainage. ENT: No nasal bleeding or discharge. Mucous membranes pink and moist. NECK: Supple. Trachea midline. CARDIOVASCULAR: Regular rate and rhythm. S1, S2 noted. No murmur appreciated. Mild cp to palpation of midsternal chest. RESPIRATORY: No accessory muscle use. Clear to auscultation. Breath sounds equal bilaterally. GASTROINTESTINAL: Abdomen soft, non-tender, nondistended. Normoactive bowel sounds x4. MUSCULOSKELETAL: No obvious deformities. Extremities without clubbing, cyanosis , or edema. NEUROLOGICAL: Awake and alert. No obvious cranial nerve deficits. Motor grossly within normal limits. 5/5 muscle strength in bilateral upper and lower extremities. Normal speech. PSYCHIATRIC: Appropriate mood and affect; insight and judgment normal. Results - Labs CBC & Chem 7: 04/14/18 04:48 04/14/18 04:48 Laboratory Results - last 24 hr 04/13/18 04/13/18 04/13/18 06:40 06:40 14:20 CBC w Diff WBC RBC Hgb Hct MCV MCH MCHC RDW Plt Count MPV Neut % (Auto) Lymph % (Auto) [place] % (Auto) Eos % (Auto) Baso % (Auto) Neut # (Auto) Lymph # (Auto) [place] # (Auto) Eos # (Auto) Baso # (Auto) WBC Differential Differential Comment Sodium Potassium Chloride Carbon Dioxide Anion Gap BUN Creatinine Estimated GFR Random Glucose Hemoglobin A1c 5.4 Calcium Total Creatine Kinase CK-MB (CK-2) 4.3 H CK-MB (CK-2) % 0.8 Triglycerides 95 Cholesterol 108 L LDL Cholesterol, Calc 54 HDL Cholesterol 35.2 L Cholesterol/HDL Ratio 3.06 Ur Random Creatinine 68 Ur Random Sodium 86 04/14/18 04/14/18 04:48 04:48 CBC w Diff Auto diff final WBC 6.6 RBC 4.05 L Hgb 11.9 L Hct 36.3 L MCV 89.7 MCH 29.3 MCHC 32.7 RDW 12.8 Plt Count 218 MPV 9.0 Neut % (Auto) 50.9 Lymph % (Auto) 38.1 [place] % (Auto) 7.6 Eos % (Auto) 2.7 Baso % (Auto) 0.7 Neut # (Auto) 3.4 Lymph # (Auto) 2.5 [place] # (Auto) 0.5 Eos # (Auto) 0.2 Baso # (Auto) 0.0 WBC Differential . Differential Comment . Sodium 142 Potassium 4.4 Chloride 106 Carbon Dioxide 29.3 Anion Gap 7 BUN 27 H Creatinine 1.70 H Estimated GFR 44 L Random Glucose 69 L Hemoglobin A1c Calcium 7.9 L Total Creatine Kinase 294 CK-MB (CK-2) CK-MB (CK-2) % Triglycerides Cholesterol LDL Cholesterol, Calc HDL Cholesterol Cholesterol/HDL Ratio Ur Random Creatinine Ur Random Sodium - Imaging Impressions Abdomen/Bladder Ultrasound 04/13/18 00:00 CONCLUSION: 1. Normal exam Assessment and Plan - Assessment (1) Acute renal failure due to rhabdomyolysis Code(s): N17.9 - Acute kidney failure, unspecified; M62.82 - Rhabdomyolysis Status: Acute (2) Chest pain, rule out acute myocardial infarction Code(s): R07.9 - Chest pain, unspecified Status: Acute - Plan This is a 42-year-old male patient who presented to the ED with: Chest pain, atypical -Patient has been admitted for observation. -Serial EKGs and serial troponins have been ordered for ruling out ACS purposes. Troponin trend flat. -EKG reviewed, normal sinus rhythm with controlled heart rate, no evidence of ST elevation. -Chest x-ray reviewed, no acute cardiopulmonary disease noted. -D-dimer was mildly elevated but he did have renal insufficiency CTA will be on hold for now. -Patient is currently without shortness of breath and lying in bed comfortably. -CBC reviewed, essentially unremarkable. -BMP showing acute kidney injury, improving. -ACS has been ruled out with serial EKGs and serial troponins. Chest pain is mildly reproducible in the midsternal chest, this is suspected secondary to a musculoskeletal issue. Unable to give NSAIDs due to acute kidney injury. Tylenol as needed. -Patient is comfortable at this time although does complain of intermittent chest pain overnight. -Will order for a cardiac treadmill stress test to rule out any ischemia. -Supportive care. Acute rhabdomyolysis, improved. Acute kidney injury suspect secondary to above, improving. -CPK level in the 817 upon presentation, trending down. -Creatinine 2.6/BUN 30/GFR 27 initially on presentation. Improved. -Patient denies any history of kidney disease in the past, this is secondary to rhabdomyolysis. -Continue IV fluids. Ensure hydration. -UA is negative. Normal renal US. -Tox screen and alcohol level negative. BNP 7. Hypertension -Patient takes Norvasc and lisinopril. Will continue Norvasc. Hold AURELIA inhibitor for now. Monitor blood pressure trends. History of asthma -This is stable. Continue home inhalers. DVT prophylaxis: SCDs. Ambulation. Discharge Planning: Possible DC after stress test if negative.
[2018-04-14] MEDS: Beclomethasone Dipropionate 80 MCG/ACT 10.6 GM Inhaler INH SCH (12:26)
--- NOTE | 2018-04-15 08:27 | TR ---
Date Performed: 04/14/2018 Time Performed: 09:07:03 DOCTOR: Karen Rodriguez DRUG LIST: CLINICAL HISTORY: REASON FOR TEST: Chest pain REASON FOR ENDING: OBSERVATION: CONCLUSION: Joni protocol completed test stopped secondary to leg fatigue. Max time 9:00 min. N o reproducible chest pain. Good exercise tolerance. BP response good. Recovery quick and unremarkable . Maximum QR=022 Target HR Achieved=90.0% Maximum LB=627/95 Total Exercise Time=9:08 COMMENTS: No ischemia
== END 2018-04-14 16:26 | disposition home or self-care (01) ==
LOC: PHED 20:05 → PHEDA 20:05 → PH3 22:00
PROVIDERS: ADMIT Hospitalist; ATTEND Hospitalist